=== PATIENT | female | born 1980 | race Two or more races ===

== ENCOUNTER 2021-08-10 19:21 | Emergency (ER) | payer OTHER ==
[~2021-08-10] VITALS: Ht 165.1 cm; Wt 132.4 kg
[2021-08-10] MEDS ORDERED: SYNTHROID137 MCG PO (19:30)
[2021-08-11] MEDS ORDERED: DICLOFENAC SODI75 MG PO (00:05)
[2021-08-11] MEDS ORDERED: BACTRIM DS TAB1 EACH PO (00:05)
== END 2021-08-11 00:13 | disposition home or self-care (01) ==
LOC: ER 19:21
DX: N39.0 Urinary tract infection, site not specified (principal); R10.32 Left lower quadrant pain

== ENCOUNTER 2022-01-18 10:05 | Outpatient (CLI) | payer OTHER ==
[~2022-01-18 10:05] MED LIST: BACTRIM DS TAB1 EACH PO; DICLOFENAC SODI75 MG PO; SYNTHROID137 MCG PO
== END 2022-01-18 10:30 | disposition home or self-care (01) ==
LOC: RX STUDY 10:05
DX: K40.90 Unilateral inguinal hernia, without obstruction or gangrene, not specified as recurrent (principal); E66.01 Morbid (severe) obesity due to excess calories

== ENCOUNTER 2024-02-21 08:26 | Emergency (ER) | payer OTHER ==
[~2024-02-21] VITALS: Ht 165.1 cm; Wt 77.1 kg
[2024-02-21] MEDS ORDERED: KETOROLAC TROMETHAMINE 60 MG VIAL IM STA (09:08)
[2024-02-21] MEDS ORDERED: KETOROLAC TROMETHAMINE 60 MG VIAL IM ONE (09:42)
== END 2024-02-21 11:07 | disposition home or self-care (01) ==
LOC: ER 08:26
DX: S90.31XA Contusion of right foot, initial encounter (principal); V28.99XA Unspecified rider of other motorcycle injured in noncollision transport accident in traffic accident, initial encounter; Y93.89 Activity, other specified; Y92.89 Other specified places as the place of occurrence of the external cause